=== PATIENT | male | born 2000 | race African-American/Black ===

== ENCOUNTER 2018-11-13 14:52 | Emergency (ER) | payer SELFPAY ==
[2018-11-13 14:58] VITALS: BP 137/75; PULSE 88; TEMP 97.9
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
== END 2018-11-13 17:30 | disposition home or self-care (01) ==
LOC: JER 14:52
DX: S06.0X0A Concussion without loss of consciousness, initial encounter (principal); V49.9XXA Car occupant (driver) (passenger) injured in unspecified traffic accident, initial encounter; W22.11XA Striking against or struck by driver side automobile airbag, initial encounter; Y92.488 Other paved roadways as the place of occurrence of the external cause; Y93.89 Activity, other specified; Y99.8 Other external cause status
CPT/HCPCS: 70450-TC; 99281-25